=== PATIENT | male | born 1995 | race American Indian/Alaskan Native ===

== ENCOUNTER 2019-04-23 15:12 | Emergency (ER) | payer OTHER ==
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
[2019-04-23] MEDS ORDERED: IBUPROFEN PO ONE (17:12)
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
[2019-04-23 17:58] VITALS: BP 136/74
== END 2019-04-23 17:55 | disposition home or self-care (01) ==
LOC: ED 15:12
DX: S40.011A Contusion of right shoulder, initial encounter (principal); S09.90XA Unspecified injury of head, initial encounter; Y08.89XA Assault by other specified means, initial encounter; Y93.89 Activity, other specified; Y92.89 Other specified places as the place of occurrence of the external cause; Y99.8 Other external cause status
CPT/HCPCS: 70450

== ENCOUNTER 2019-05-06 22:34 | Emergency (ER) | payer SELFPAY ==
[2019-05-06 22:44] VITALS: BP 130/65
[2019-05-07] MEDS ORDERED: ULTRAM PO ONE (00:30)
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
== END 2019-05-07 01:20 | disposition home or self-care (01) ==
LOC: ED 22:34
DX: M54.2 Cervicalgia (principal)
CPT/HCPCS: 99282